=== PATIENT | male | born 1945 | race Caucasian/White ===

== ENCOUNTER 2023-07-19 09:58 | Emergency (ER) | payer MEDICARE, OTHER, SELFPAY ==
--- NOTE | ~2023-07-19 | CT_ITS ---
EXAMINATION: CT brain wo con DATE: 07/19/2023 11:43 INDICATION: Lump and swelling around left thigh, temporal area TECHNIQUE: Computed tomography (CT) of the head was performed without intravenous contrast. The mA wa s adjusted according to patient size. Iterative reconstruction technique was employed. Exam dose: 68 1.00 mGy-cm total exam DLP. COMPARISON: None FINDINGS: There is a 3.6 x 5.3 mm lucency in the left lateral frontal bone with central density. This may be an osteoid osteoma. Radiograph and bone scan may be helpful for further evaluation if clinica lly appropriate. Slightly posterior to this is a focal area of soft tissue swelling in the extracranial soft tissues i n the lateral left frontal area, with approximately 2.3 x 2.6 mm fluid density surrounded by soft tis alicia thickening, possibly a sebaceous cyst, possibly inflamed. Vertebral, basilar and bilateral carotid siphon internal carotid artery calcifications. No intracranial mass lesion or hemorrhage or cerebrovascular accident is evident. No midline shift or mass effect. No subdural or epidural hematoma is detected. No skull fracture or bone destruction is noted otherwise. Normal development and aeration of the mastoid air cells and included paranasal sinuses. 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 Reviewed, dictated and finalized at [facility] 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
[2023-07-19 10:07] VITALS: BP 119/80; PULSE 68; RESP 16; TEMP 36.2; O2SAT 96
--- NOTE | 2023-07-19 10:24 | ED.GENADULT ---
HPI - General Adult General Chief complaint: Skin/Abscess/Foreign Body Stated complaint: wound on forehead/eyelid drooping last pm Time Seen by Provider: 07/19/23 10:24 Source: patient and family Mode of arrival: ambulatory Limitations: no limitations History of Present Illness HPI narrative: 77 YEARS OLD WHITE MALE NOTICED A BOIL AT THE LEFT FOREHEAD 5-6 DAYS AGO, GRADUALLY GETTING BIGGER, RED AND TENDER. WAS ABLE TO SQUEEZE CLEAR FLUID OUT OF BED. PATIENT IS NOT DIABETIC. HE DENIES ANY FEVER, CHILLS, NAUSEA, VOMITING, HEADACHE. PATIENT WOKE UP AND NOTICED THAT HIS LEFT UPPER EYELID SLIGHTLY PUFFY. HE DENIES ANY VISION CHANGE OR HEADACHE. Related Data Allergies Allergy/AdvReac Type Severity Reaction Status Date / Time No Known Allergies Allergy Unverified 07/19/23 10:32 Review of Systems Review of Systems: All systems reviewed & are unremarkable except as noted in HPI and below Exam Narrative: GENERAL APPEARANCE: WELL-DEVELOPED, WELL-NOURISHED SKIN: NORMAL COLOR LEFT FOREHEAD SHOWED 2 X 2 CM LUMP, FIRM IN CONSISTENCY, RED, TENDER TO TOUCH, NO FLUCTUATION, NO DISCHARGE HEAD: NORMOCEPHALIC, NONTRAUMATIC EYES: CLEAR CONJUNCTIVA, PAINLESS RI MOVEMENTS ENT: OROPHARYNX NORMAL, EARS NORMAL, NOSE NORMAL NECK: SUPPLE, NONTENDER IN MUSCULOSKELETAL: NORMAL RANGE OF MOTION, NONTENDER BACK NEUROLOGIC: ALERT AND ORIENTED ?3, BEREAVEMENT COUNSELOR IS NORMAL TESTED, NO GROSS MOTOR DEFICIT Course Vital Signs Vital signs: Vital Signs Temperature 36.2 C L 07/19/23 10:07 Pulse Rate 68 07/19/23 10:07 Respiratory Rate 16 07/19/23 10:07 Blood Pressure 119/80 07/19/23 10:07 Pulse Oximetry 96 07/19/23 10:07 Temperature 36.2 C L 07/19/23 10:07 Pulse Rate 68 07/19/23 10:07 Respiratory Rate 16 07/19/23 10:07 Blood Pressure 119/80 07/19/23 10:07 Pulse Oximetry 96 07/19/23 10:07 Procedures Abscess I/D face: Date of Incision: 07/19/23 Time of Incision: 11:15 Side (if applicable): left Local Anesthetic: lidocaine 1% Amount of anesthesia used (mL): 2 Technique: needle aspiration (18 GAUGE NEEDLE ASPIRATION SHOWED THICK PURULENT DISCHARGE, CULTURED) and incised with #11 blade Amount of fluid expressed (mL): 1 Irrigation: No Packing used?: iodoform I&D Results: Pus and Blood Complications: pain and bleeding Medical Decision Making MDM Narrative Medical decision making narrative: PATIENT PRESENTS WITH BOIL LIKE LESION LEFT FOREHEAD, PHYSICAL EXAMINATION SHOWED HARDENING AND FIRM FEELING, WITHOUT FLUCTUATION, POSSIBLE BONE MASS COMPLICATED WITH INFECTION. 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 PATIENT WILL BE DISCHARGED ON CLINDAMYCIN FOR POSSIBLE MRSA INFECTION Differential Diagnosis Differential Diagnosis: BONE MASS WITH SECONDARY BACTERIAL INFECTION, VERSUS ABSCESS Vital Signs Vital Signs: Vital Signs Temperature 36.2 C L 07/19/23 10:07 Pulse Rate 68 07/19/23 10:07 Respiratory Rate 16 07/19/23 10:07 Blood Pressure 119/80 07/19/23 10:07 Pulse Oximetry 96 07/19/23 10:07 Temperature 36.2 C L 07/19/23 10:07 Pulse Rate 68 07/19/23 10:07 Respiratory Rate 16 07/19/23 10:07 Blood Pressure 119/80 07/19/23 10:07 Pulse Oximetry 96 07/19/23 10:07 Imaging Data Attestation: I personally reviewed and interpreted this imaging study as follows: My impression: Impressions
[2023-07-19] MEDS: CEPHALEXIN 500 MG CAPSULE PO (11:29)
== END 2023-07-19 13:45 | disposition home or self-care (01) ==
PROVIDERS: Emergency Provider Emergency Medicine; PCP Internal Medicine
DX: L02.01 Cutaneous abscess of face (principal); D16.9 Benign neoplasm of bone and articular cartilage, unspecified
CPT/HCPCS: 10061; 70450; 87070; 87147; 87181; 87186; 87205; 99284; A9270

== ENCOUNTER 2023-07-23 10:34 | Emergency (ER) | payer MEDICARE, OTHER, SELFPAY ==
[2023-07-23 10:36] VITALS: BP 186/66; PULSE 66; RESP 20; TEMP 36.5; O2SAT 100
--- NOTE | 2023-07-23 10:59 | ED.SKABFB ---
HPI - Skin/Abscess/Foreign Bdy General Chief complaint: Skin/Abscess/Foreign Body Stated complaint: abscess Time Seen by Provider: 07/23/23 10:40 History of Present Illness HPI narrative: 77-year-old male with history of atrial fibrillation reports for evaluation for an abscess to his left temporal region x9 days. Patient was seen in this ER 4 days ago for the abscess. It was drained and packing was placed. He had a CT scan at that time to rule out malignancy which showed evidence of an osteoid osteoma. Patient was discharged home with Keflex. patient removed the packing 2 days after discharge and states he noted 1 piece of continuous gauze removed. He returns today because he is concerned that maybe there was another piece of gauze left in the abscess. He has does state that he has been taking the antibiotics as prescribed and he has noticed some improvement. He denies fevers, vomiting. Related Data Allergies Allergy/AdvReac Type Severity Reaction Status Date / Time No Known Allergies Allergy Unverified 07/19/23 10:32 Review of Systems Review of Systems: CONSTITUTIONAL: Denies fever, chills, or sweats. EYES: Denies visual changes, redness, or discharge. ENT: Denies rhinorrhea, congestion, sore throat, or otalgia. CARDIOVASCULAR: Denies chest pain, palpitations, or edema. RESPIRATORY: Denies cough or dyspnea. GASTROINTESTINAL: Denies abdominal pain, nausea, vomiting, or diarrhea. GENITOURINARY: Denies dysuria or hematuria. SKIN: See HPI MUSCULOSKELETAL: Denies back pain, joint pain, or myalgia. NEUROLOGIC: Denies headache, numbness, or weakness. PSYCHIATRIC: Denies anxiety or depression. Exam Narrative: GENERAL: Well-appearing, well-nourished, and in no acute distress. HEAD: Normocephalic, atraumatic. EYES: PERRLA and EOMI. ENT: Nares clear, no rhinorrhea or epistaxis. Mucous membranes moist. NECK: Supple. CHEST: Clear to auscultation. No respiratory distress. HEART: Regular rate and rhythm. No murmur heard. Normal peripheral pulses. EXTREMITIES: Normal range of motion. No edema. SKIN: [id number] abscess with pink skin. No surrounding erythema or warmth. There is a small area of central Fluctuance with de roman scab. I was able to do D refer the scab without difficulty and drained approximately 1 cc of purulence. Cavity was exposed and explored and there is no evidence of remaining packing. no crepitus or induration NEURO: No focal deficits. Alert and oriented x3 Course Vital Signs Vital signs: Vital Signs Temperature 97.7 F 07/23/23 10:36 Pulse Rate 66 07/23/23 10:36 Respiratory Rate 20 07/23/23 10:36 Blood Pressure 186/66 H 07/23/23 10:36 Pulse Oximetry 100 07/23/23 10:36 Oxygen Delivery Room Air 07/23/23 10:36 Temperature 97.7 F 07/23/23 10:36 Pulse Rate 66 07/23/23 10:36 Respiratory Rate 20 07/23/23 10:36 Blood Pressure 186/66 H 07/23/23 10:36 Pulse Oximetry 100 07/23/23 10:36 Oxygen Delivery Room Air 07/23/23 10:36 MDM - Skin/Abscess/Foreign Bdy MDM Narrative Medical decision making narrative: 77-year-old male with history of atrial fibrillation reports for evaluation and for a recheck of his abscess and concern for packing left in the abscess. See HPI for further history. Vitals significant for elevated blood pressure 186/66, otherwise unremarkable. Patient is afebrile. Exam is significant for the above which has improved from his exam 4 days ago. I was able to express approximately 1 cc of purulence, there is no evidence of remaining packing. Prior chart reviewed and CT imaging discussed with the patient. I gave him a copy of the CT report and advised to follow-up with his PCP given results of possible osteoid osteoma . Plan to start Bactrim for MRSA coverage, however will collect labs given no prior for comparison. CBC with hemoglobin of 11.7. Chemistries show normal renal and liver function, normal potassium. Will send Bactrim to th
[2023-07-23 11:27] LABS: Basophils Percent Auto 0.5 % (0.2-1.2); Eosinophils Absolute Auto 0.2 K/mm3 (0-0.3); Eosinophils Percent Auto 2.8 % (0-4.4); Hemoglobin 11.7 g/dL (14.0-18.0); Immature Granulocyte Absolute 0.03 K/mm3 (0.00-0.031); Immature Granulocyte Percent A 0.5 % (0-0.5); Lymphocytes Absolute Auto 1.03 K/mm3 (0.9-3.2); Lymphocytes Percent Auto 16.2 % (18.3-44.2); Mean Corpuscular HGB Conc 32.5 g/dl (32-36); Mean Corpuscular Hemoglobin 31.5 pg (26-34); Monocytes Absolute Auto 0.7 K/mm3 (0.1-0.6); Monocytes Percent Auto 11.2 % (2.6-8.5); Neutrophils Absolute Auto 4.4 K/mm3 (1.3-6.7); Neutrophils Percent Auto 68.8 % (45.5-73.1); Platelet Count Result 218 k/mm3 (150-375); Red Blood Count 3.71 M/mm3 (4.6-6.20); Red Cell Distribution Width 13.7 % (11.5-14.5); White Blood Count 6.3 K/mm3 (4.5-10.0)
[2023-07-23 11:38] LABS: Alanine Aminotransferase 25 U/L (6-50); Albumin Level 4.3 g/dL (3.5-5.1); Alkaline Phosphatase 81 U/L (38-126); Anion Gap 7 mmol/L (8-16); Aspartate Amino Transferase 34 U/L (17-59); Bilirubin,Total 0.5 mg/dL (0.2-1.3); Blood Urea Nitrogen 23 mg/dL (9-20); Calcium 9.1 mg/dL (8.4-10.2); Carbon Dioxide 24 mmol/L (22-30); Chloride 107 mmol/L (98-107); Estimated CRCL calculation 47 ml/min; Estimated Glomerular Filt Rate 59; Glucose 103 mg/dL (65-110); Potassium 4.5 mmol/L (3.4-5.0); Sodium 138 mmol/L (137-145)
[2023-07-23 12:33] VITALS: BP 146/69; PULSE 87; RESP 16; O2SAT 100
== END 2023-07-23 12:29 | disposition home or self-care (01) ==
PROVIDERS: Emergency Provider Physician Assistant; PCP Internal Medicine
DX: L02.01 Cutaneous abscess of face (principal); D16.9 Benign neoplasm of bone and articular cartilage, unspecified; I48.91 Unspecified atrial fibrillation
CPT/HCPCS: 36415; 80053; 85025; 99283